=== PATIENT | female | born 1985 | race Caucasian/White ===

== ENCOUNTER 2016-08-23 02:39 | Emergency (ER) | payer OTHER, SELFPAY ==
[~2016-08-23] VITALS: Ht 162.6 cm; Wt 60.4 kg
[2016-08-23 02:42] VITALS: BP 137/90
[2016-08-23] MEDS ORDERED: CEPHALEXIN 500 MG CAPSULE ONE (03:07)
[2016-08-23] MEDS ORDERED: SULFAMETH./TRIMETHOPRIM DS 800MG/160MG TABLET ONE (03:07)
[2016-08-23] MEDS ORDERED: CEPHALEXIN 500 MG CAPSULE PO ONE (03:30)
[2016-08-23] MEDS ORDERED: SULFAMETH./TRIMETHOPRIM DS 800MG/160MG TABLET PO ONE (03:30)
== END 2016-08-23 03:35 | disposition home or self-care (01) ==
LOC: ED 03:21
DX: L03.213 Periorbital cellulitis (principal)
CPT/HCPCS: 99283